=== PATIENT | female | born 1945 | race African-American/Black ===

== ENCOUNTER 2017-04-17 12:03 | Inpatient (IN) | payer OTHER ==
[2017-04-17 12:12] VITALS: BMI 35.6
--- NOTE | 2017-04-17 12:38 | PDOC ---
History of Present Illness - General Chief Complaint: Shortness of Breath Stated Complaint: PCP SENT Time Seen by Provider: 04/17/17 12:38 - History of Present Illness Initial Comments: 04/17/17 13:13 Ms. Doshi is a 71 year old female with a significant past medical history of DM, HTN, Hypercholesterolemia who presents to the emergency department with a 6 day history of tightness in her chest with new onset shortness of breath when she attempts to walk. She says she must now walk much more slowly than normal so as to catch her breath as she moves. She was at her pcp this morning and sent here for r/o PE. The patient denies chest pain, shortness of breath, headache and dizziness. Denies fever, chills, nausea, vomit, diarrhea and constipation. Denies dysuria, frequency, urgency and hematuria. Allergies:NKDA Past surgical history: partial hysterectomy Social history: none PMD - Alexander Guido Past History - Past Medical History Allergies/Adverse Reactions: Allergies Allergy/AdvReac Type Severity Reaction Status Date / Time No Known Drug Allergies Allergy Verified 04/17/17 12:11 Home Medications: Ambulatory Orders Aspirin Coated [Ecotrin -] 81 mg PO DAILY 08/07/12 Atorvastatin Calcium 40 mg PO DAILY 08/07/12 Carvedilol 12.5 mg PO DAILY 08/07/12 Losartan/Hydrochlorothiazide [Losartan-Hctz 50-12.5 mg Tab] 1 each PO UTDICT 07/08 Empagliflozin [Jardiance] 10 mg PO DAILY 04/17/17 Ezetimibe [Zetia -] 10 mg PO DAILY 04/17/17 Metformin HCl [Metformin HCl ER] 1,000 mg PO DAILY 04/17/17 Anemia: No Asthma: No Cancer: No Cardiac Disorders: No CVA: No COPD: No CHF: No Dementia: No Diabetes: Yes (BORDERLINE) GI Disorders: No Disorders: No HTN: Yes Hypercholesterolemia: Yes Liver Disease: Yes (NAFLD) Seizures: No Thyroid Disease: Yes ("ENLARGED") - Surgical History Abdominal Surgery: No Appendectomy: No Cardiac Surgery: No Cholecystectomy: No Lung Surgery: No Neurologic Surgery: No Orthopedic Surgery: No - Psycho/Social/Smoking Cessation Hx Suicidal Ideation: No Smoking History: Never smoked Have you smoked in the past 12 months: No Information on smoking cessation initiated: No Hx Alcohol Use: No Drug/Substance Use Hx: No Substance Use Type: None Hx Substance Use Treatment: No Review of Systems - Review of Systems Comments:: 04/17/17 13:13 GENERAL/CONSTITUTIONAL: No fever or chills. No weakness. HEAD, EYES, EARS, NOSE AND THROAT: No change in vision. No ear pain or discharge. No sore throat. CARDIOVASCULAR: +Recent shortness of breath on exertion. RESPIRATORY: +Recent tightness in chest with shortness of breath. No cough, wheezing, or hemoptysis. GASTROINTESTINAL: No nausea, vomiting, diarrhea or constipation. GENITOURINARY: No dysuria, frequency, or change in urination. MUSCULOSKELETAL: No joint or muscle swelling or pain. No neck or back pain. SKIN: No rash NEUROLOGIC: No headache, vertigo, loss of consciousness, or change in strength/ sensation. ENDOCRINE: No increased thirst. No abnormal weight change HEMATOLOGIC/LYMPHATIC: No anemia, easy bleeding, or history of blood clots. ALLERGIC/IMMUNOLOGIC: No hives or skin allergy. *Physical Exam - Vital Signs Last Vital Signs Temp Pulse Resp BP Pulse Ox 98 F 100 H 18 160/86 98 04/17/17 12:06 04/17/17 12:06 04/17/17 12:06 04/17/17 12:06 04/17/17 12:06 - Physical Exam Comments: 04/17/17 13:13 GENERAL: Awake, alert, and fully oriented, in no acute distress HEAD: No signs of trauma, normocephalic, atraumatic EYES: PERRLA, EOMI, sclera anicteric, conjunctiva clear ENT: Auricles normal inspection, hearing grossly normal, nares patent, oropharynx clear without exudates. Moist mucosa NECK: Normal ROM, supple, no lymphadenopathy, JVD, or masses LUNGS: +Bilateral wheezes noted at lung bases. No distress while seated, speaks full sentences HEART: Regular rate and rhythm, normal S1 and S2, no murmurs, rubs or gallops, peripheral pulses normal and equal bilaterally. ABDOMEN: Soft, nontender, normoactive bowel sounds. No guarding, no rebound. No masses EXTREMITIES: Normal inspection, Normal range of motion, no edema. No clubbing or cyanosis. NEUROLOGICAL: Cranial nerves II through XII grossly intact. Normal speech, normal gait, no focal sensorimotor deficits SKIN: Warm, Dry, normal turgor, no rashes or lesions noted. ED Treatment Course - LABORATORY CBC & Chemistry Diagram: 04/17/17 13:07 04/17/17 13:07 Medical Decision Making - Medical Decision Making 04/17/17 19:12 Ms. Doshi presents for evaluation after a 6 day history of shortness of breath with walking as well as tightness of her chest. She presents on advice of PCP Alexander Guido for R/O PE. D-Dimer 777, CTA showed bilateral pulmonary effusions as well as pancreatic mass. PCP made aware and Drs. Shearer and Yaima consulted for Pulm and GI f/u. Hay will admit for further care. *DC/Admit/Observation/Transfer Diagnosis at time of Disposition: Pleural effusion, Pancreatic mass - Discharge Dispostion Admit: Yes - Referrals Referrals: Alexander Guido MD [Primary Care Provider] - - Attestations Physician Attestion: 04/17/17 13:13 I, Dr. Clive Ortiz, attest that this document has been prepared under my direction and personally reviewed by me in its entirety. I further attest, that it accurately reflects all work, treatment, procedures and medical decision -making performed by me.
[2017-04-17] MEDS ORDERED: ALBUTEROL SO4 2.5/IPRATROPIUM 0.5 INH SOL 3 ML VIAL.NEB. NEB ONE ×2 (12:53→13:09)
[2017-04-17 13:45] LABS: BASOPHIL 0.8 % (0-2.0); EOSINOPHIL 1.6 % (0-4.5); MCH 21.9 pg (25.7-33.7); MCHC 30.7 g/dl (32.0-36.0); MEAN CELL VOLUME 71.3 fl (80-96); MEAN PLT VOLUME 10.2 fl (7.5-11.1); NEUTROPHILS 64.3 % (42.8-82.8); PLATELET COUNT 244 K/MM3 (134-434); RDW 18.2 % (11.6-15.6); WHITE BLOOD COUNT 9.9 K/mm3 (4.0-10.0)
--- NOTE | 2017-04-17 13:56 | PDOC ---
Attending Attestation - Resident Resident Name: Clive Ortiz - ED Attending Attestation I have performed the following: I have examined & evaluated the patient, The case was reviewed & discussed with the resident, I agree w/resident's findings & plan, Exceptions are as noted - HPI HPI: 04/17/17 13:45 71 F with h/o DM, HTN, HLD presenting to ER with 1 week of HERNANDEZ. Pt states that she feels like her chest is tight. The tightness is worse with deep inspiration. Denies F/C. Denies cough. Denies leg swelling, denies recent travel /immobilization. No h/o asthma/COPD, never smoked. - Physicial Exam PE: 04/17/17 13:56 "GENERAL: Awake, alert, and fully oriented, in no acute distress HEAD: No signs of trauma EYES: PERRLA, EOMI, sclera anicteric, conjunctiva clear ENT: Auricles normal inspection, hearing grossly normal, nares patent, oropharynx clear without exudates. Moist mucosa NECK: Normal ROM, supple, no lymphadenopathy, JVD, or masses LUNGS: diminished BS at R base, mild diffuse rales, no wheezing, no rhonchi HEART: Regular rate and rhythm, normal S1 and S2, no murmurs, rubs or gallops ABDOMEN: Soft, nontender, normoactive bowel sounds. No guarding, no rebound. No masses EXTREMITIES: Normal range of motion, no edema. No clubbing or cyanosis. No cords, erythema, or tenderness NEUROLOGICAL: Cranial nerves II through XII grossly intact. Normal speech, normal gait SKIN: Warm, Dry, normal turgor, no rashes or lesions noted. " - Medical Decision Making 04/17/17 13:57 71 F with DM, HTN, HLD presenting with 1 week of HERNANDEZ and chest tightness. Exam with diminished lung sounds at R lung base and crackles. Possible new onset CHF. Also consider pleural effusion. Will also r/o PE given tachycardia and pleuritic chest tightness. ACS is possibility given TW inversions on EKG, though presentation is atypical. - Labs, trop, BNP, ddimer - CXR - Admit 04/17/17 17:25 Ddimer positive Pt pending CTA chest to r/o PE. HEART score 4, to be admitted for ACS r/o if CT negative. Heart Score/ECG Review - History History: Slightly suspicious - Electrocardiogram EKG: Normal - Age Age: >/= 65 - Risk Factors Risk Factors Heart Score: Yes Hx Hypercholesterolemia, Yes Hx Hypertension, Yes Hx Diabetes Based on the list above the patient has:: >/=3 risk factors or Hx atherosclerotic disease - Troponin Troponin: </= normal limit - Score Heart Score - Total: 4 - ECG Impressions Comment:: 04/17/17 13:57 Sinus tachycardia. No ALTHEA/STDs, TWI in anterior leads, intervals wnl, axis wnl
[2017-04-17 14:07] LABS: ALBUMIN 3.7 g/dl (3.4-5.0); ANION GAP 23 (8-16); BILIRUBIN,TOTAL 0.8 mg/dL (0.2-1.0); CO2 14 mmol/L (21-32); CREATININE 0.4 mg/dL (0.55-1.02); GLUCOSE,RANDOM 89 mg/dL (74-106); SGPT/ALT 22 U/L (12-78)
[2017-04-17 14:10] LABS: ALK PHOS 115 U/L (45-117); TOT PROT 7.6 g/dl (6.4-8.2); TROPONIN I < 0.02 ng/ml (0.00-0.05)
[2017-04-17 14:11] LABS: CALCIUM 8.7 mg/dL (8.5-10.1); CPK 120 IU/L (26-192); SGOT/AST 37 U/L (15-37)
--- NOTE | 2017-04-17 18:55 | EKG ---
Test Reason : Blood Pressure : / mmHG Vent. Rate : 100 BPM Atrial Rate : 100 BPM P-R Int : 170 ms QRS Dur : 078 ms QT Int : 370 ms P-R-T Axes : 070 -25 -13 degrees QTc Int : 477 ms NORMAL SINUS RHYTHM NONSPECIFIC ST AND T WAVE ABNORMALITY PROLONGED QT ABNORMAL ECG WHEN COMPARED WITH ECG OF 07-MAR-2008 08:10, VENT. RATE HAS INCREASED BY [address]-T WAVE ABNORMALITY IN ANTERIOR LEADS Confirmed by MARGIE PADILLA MD ([id number]) on 04/17/2017 6:54:55 PM Referred By: Confirmed By:MARGIE PADILLA MD
[2017-04-17] MEDS ORDERED: LOSARTAN POTASSIUM 25 MG TABLET ONE (20:28)
[2017-04-17] MEDS ORDERED: HYDROCHLOROTHIAZIDE 25 MG TABLET (FP) ONE (20:28)
[2017-04-17] MEDS: LOSARTAN 50MG/HCTZ 12.5MG 1 TAB (FP) PO SCH (21:08)
[2017-04-17] MEDS ORDERED: CARVEDILOL 3.125 MG TABLET (FP) ONE (22:41)
[2017-04-17] MEDS: CARVEDILOL 6.25 MG TABLET (FP) PO SCH (22:47)
[2017-04-18] MEDS ORDERED: PT OWN MED DRAWER 7, Y5N ONE ×2 (01:46→09:25)
[2017-04-18] MEDS ORDERED: AMPICILLIN NA/SULBACTAM NA 100 ML IVPB SCH (02:00)
[2017-04-18] MEDS ORDERED: AMPICILLIN NA/SULBACTAM NA 1.5 GM VIAL ONE ×3 (02:05→17:05)
[2017-04-18] MEDS ORDERED: SODIUM CHLORIDE 100 ML IVPB ONE ×3 (02:05→17:05)
[2017-04-18] MEDS: AMPICILLIN NA/SULBACTAM NA 1.5 GM in SODIUM CHLORIDE 100 ML IVPB SCH ×3 (02:26→17:09)
[2017-04-18] MEDS: CARVEDILOL 6.25 MG TABLET (FP) PO SCH (09:34)
[2017-04-18 10:21] LABS: INR 1.13 (0.82-1.09); PROTHROMBIN TIME (PATIENT) 12.5 SEC (9.98-11.88)
--- NOTE | 2017-04-18 10:30 | CON.GI ---
Consult Consult Specialty:: GI - For Dr. Erwin Referred by:: Dr. Alexander Guido Reason for Consultation:: Pancreatic Mass - History of Present Illness Chief Complaint: Shortness of breath History of Present Illness: 71F admitted to [facility] after having been sent by her PMD to ER for evaluation of increasing SOB/HERNANDEZ. Work-up included a CTA of the chest revealing a moderate to large right pleural effusion, small left pleural effusion, bilateral lung nodules and a 4cm pancreatic mass. She describes a decrease in appetite over the past 3 months but denies weight loss. She also says that more recently her diabetes has been harder to control. she denies abdominal pain, nausea, vomiting, dysphagia, odynophagia, change in bowel habits, rectal bleeding / melena. She is followed by care rep Dr. Sharri Erwin who last saw Ms. Doshi in office 09/17/15. His note at that fawn alludes to her undergoing EGD 08/02 that revealed streaks of antral gastritis with a small hiatal hernia and a patent schatzki's ring. her last colonoscopy also appeared to be 09/20/13 that revealed mild diverticulosis in the sigmoid colon. hyperplastic polyps were removed. - History Source History Provided By: Patient, Medical Record Limitations to Obtaining History: No Limitations - Past Medical History Cardio/Vascular: Yes: HTN, Hyperlipdemia Gastrointestinal: Yes: Diverticulosis, GERD, Other (colon polyps, gallstones vs. 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 Place of : [facility] History of Recent Travel: No Home Medications - Allergies Allergies/Adverse Reactions: Allergies Allergy/AdvReac Type Severity Reaction Status Date / Time No Known Drug Allergies Allergy Verified 04/17/17 12:11 - Home Medications Home Medications: Ambulatory Orders Aspirin Coated [Ecotrin -] 81 mg PO DAILY 08/07/12 Atorvastatin Calcium 40 mg PO DAILY 12/18/12 Carvedilol 12.5 mg PO DAILY 08/07/12 Losartan/Hydrochlorothiazide [Losartan-Hctz 50-12.5 mg Tab] 1 each PO UTDICT 07/08 Empagliflozin [Jardiance] 10 mg PO DAILY 04/17/17 Ezetimibe [Zetia -] 10 mg PO DAILY 04/17/17 Metformin HCl [Metformin HCl ER] 1,000 mg PO DAILY 04/17/17 Family Disease History - Family Disease History Family Disease History: Other: Father (: [place]) Other Family History: Sibling with lymphoma, sibling with HIV Review of Systems - Review of Systems Constitutional: denies: Chills, Unintentional Wgt. Loss Cardiovascular: reports: Shortness of Breath. denies: Chest Pain Respiratory: reports: SOB on Exertion. denies: Cough, Hemoptysis, Wheezing Gastrointestinal: reports: Other (diminished appetite over the past 3 months). denies: Abdominal Pain, Bloating, Constipation, Diarrhea, Dysphagia, Melena, Nausea, Rectal Bleeding, Vomiting, Vomiting Blood Genitourinary: denies: Discharge Physical Exam-GI Vital Signs: Vital Signs Temperature 98.3 F 04/18/17 09:21 Pulse Rate 95 H 04/18/17 09:21 Respiratory Rate 18 04/18/17 09:21 Blood Pressure 155/78 04/18/17 09:21 O2 Sat by Pulse Oximetry (%) 96 04/18/17 02:00 Constitutional: Yes: Calm Eyes: No: Sclera Icterus Cardiovascular: Yes: Regular Rate and Rhythm. No: Murmur Respiratory: Yes: Diminished (at right base), Rhonchi (fine rhonchi bases b/l R> L) Gastrointestinal Inspection: No: Distention, Scars ...Auscultate: Yes: Normoactive Bowel Sounds ...Palpate: No: Hepatomegaly, Splenomegaly, Tenderness ...Percussion: No: Tympanitic Edema: No (No LE edema) Neurological: Yes: Alert, Oriented Imaging - Results Cat Scan: Report Reviewed, Image Reviewed Problem List - Problems (1) Pancreatic mass Assessment/Plan: Will need further evaluation when acute issues are resolved. Likely EUS. She shows interest in being evaluate at [facility] as she lives in the [place] scan of the abdomen / pelvis with and without contrast is pending: I adjusted it to specify pancreatic protocol CA 19-9 Pending Consider heme/onc evaluation Code(s): K86.9 - DISEASE OF PANCREAS, UNSPECIFIED
[2017-04-18] MEDS: LOSARTAN 50MG/HCTZ 12.5MG 1 TAB (FP) PO SCH (11:23)
--- NOTE | 2017-04-18 12:02 | HP ---
Admitting History and Physical - Admission Chief Complaint: 71 Y.O FPRESENTED TO THE OFFICE YESTERDAY WITH HERNANDEZ, WEAKNESS AND COUGH WITH TRACE WHEEZING. SHE WAS SENT TO [facility] ER WITH SUSPICION OF PE. IN THE ER ELEVATED D-DIMERS. CTA R>L PLEURAL EFFUSION, ATELECTATIC LUNG BASES, 4 CM HYPOECHOIC PANCREATIC MASS. 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 polyps) Hepatobiliary: Yes: Other (NAFLD) Renal/: No: Renal Failure, Renal Inusuff, BPH, Cancer, Hematuria, Hemodialysis , Neurogenic Bladder, Renal Calculi, UTI, Other Reproductive: Yes: Postmenopausal ...: No Heme/Onc: No: Anemia, B12 Deficiency, Bleeding Disorder, Cancer, Current Chemotherapy, Current Radiation Therapy, Hemochromatosis, Hypercoaguable State, Myeloproliferative Synd, Sickle Cell Disease, Sickle Cell Trait, Thrombocytopenia, Other Infectious Disease: No: AIDS, C-Diff, Herpes Zoster, HIV, MRSA, STD's, Tuberculosis, VREF, Other - Past Surgical History Past Surgical History: Yes: Hysterectomy (partial with intact ovaries), Tonsillectomy, Tubal Ligation - Smoking History Smoking history: Never smoked Have you smoked in the past 12 months: No - Alcohol/Substance Use Hx Alcohol Use: No History of Substance Use: reports: None - Social History ADL: Independent 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 History of Recent Travel: No Home Medications - Allergies Allergies/Adverse Reactions: Allergies Allergy/AdvReac Type Severity Reaction Status Date / Time No Known Drug Allergies Allergy Verified 04/17/17 12:11 - Home Medications Home Medications: Ambulatory Orders Aspirin Coated [Ecotrin -] 81 mg PO DAILY 08/07/12 Atorvastatin Calcium 40 mg PO DAILY 08/07/12 Carvedilol 12.5 mg PO DAILY 08/07/12 Losartan/Hydrochlorothiazide [Losartan-Hctz 50-12.5 mg Tab] 1 each PO UTDICT 07/08 Empagliflozin [Jardiance] 10 mg PO DAILY 04/17/17 Ezetimibe [Zetia -] 10 mg PO DAILY 04/17/17 Metformin HCl [Metformin HCl ER] 1,000 mg PO DAILY 04/17/17 Family Disease History - Family Disease History Family Disease History: Other: Father (: [place]) Other Family History: Sibling with lymphoma, sibling with HIV Review of Systems - Review of Systems Constitutional: reports: Loss of Appetite, Unintentional Wgt. Loss, Weakness Eyes: denies: Blind Spots, Recent Change in Vision HENT: denies: Difficult Swallowing, Hearing Loss, Nasal Congestion Neck: denies: Decreased ROM, Lumps, Pain on Movement, Stiffness, Swollen Glands , Tenderness Cardiovascular: reports: Shortness of Breath. denies: Chest Pain, Edema, Palpitations Gastrointestinal: reports: Bloating, Indigestion. denies: Melena, Nausea, Rectal Bleeding, Vomiting, Vomiting Blood Genitourinary: reports: No Symptoms Breasts: reports: No Symptoms Reported Musculoskeletal: reports: No Symptoms Integumentary: reports: No Symptoms Neurological: reports: No Symptoms Endocrine: reports: No Symptoms Hematology/Lymphatic: denies: Easily Bruised, Excessive Bleeding, Swollen Glands Psychiatric: reports: Anxiety Physical Examination Vital Signs: Vital Signs Temperature 98.3 F 04/18/17 09:21 Pulse Rate 95 H 04/18/17 09:21 Respiratory Rate 18 04/18/17 09:21 Blood Pressure 155/78 04/18/17 09:21 O2 Sat by Pulse Oximetry (%) 96 04/18/17 02:00 Constitutional: Yes: Anxious, Mild Distress Eyes: Yes: Conjunctiva Clear, EOM Intact HENT: Yes: Atraumatic, Normocephalic. No: Drooling, Epistaxis Neck: Yes: Supple, Trachea Midline. No: Decreased ROM, Lymphadenopathy Cardiovascular: Yes: Regular Rate and Rhythm. No: Bradycardia, Tachycardia Respiratory: Yes: Regular, Diminished (rRLL) Gastrointestinal: Yes: Normal Bowel Sounds, Soft ...Rectal Exam: Yes: Deferred Renal/: No: Anuria, Bladder Distention Breast(s): Yes: WNL Musculoskeletal: No: Joint Stiffness Extremities: No: Amputation, Calf Tenderness, Cold, Cool, Cyanosis Edema: No Peripheral Pulses WNL: Yes Integumentary: Yes: WNL Neurological: Yes: Alert, Oriented. No: Aphasia, Asterixis, Ataxia, Confusion, Dysarthria, Lethargy ...Motor Strength: WNL Psychiatric: Yes: WNL Labs: Laboratory Results - last 24 hr 04/17/17 04/17/17 04/17/17 13:07 13:07 13:07 WBC 9.9 RBC 5.41 H Hgb 11.9 Hct 38.6 MCV 71.3 L MCH 21.9 L MCHC 30.7 L RDW 18.2 H Plt Count 244 MPV 10.2 Neutrophils % 64.3 Lymphocytes % 25.8 Monocytes % 7.5 Eosinophils % 1.6 Basophils % 0.8 INR D-Dimer Cancelled Sodium 137 Potassium 5.1 Chloride 100 Carbon Dioxide 14 L Anion Gap 23 H BUN 9 Creatinine 0.4 L Creat Clearance w eGFR > 60 POC Glucometer Random Glucose 89 Calcium 8.7 Total Bilirubin 0.8 AST 37 ALT 22 Alkaline Phosphatase 115 Creatine Kinase 120 Troponin I < 0.02 B-Natriuretic Peptide Total Protein 7.6 Albumin 3.7 04/17/17 04/17/17 04/18/17 13:07 14:35 06:43 WBC RBC Hgb Hct MCV MCH MCHC RDW Plt Count MPV Neutrophils % Lymphocytes % Monocytes % Eosinophils % Basophils % INR D-Dimer 777 H Sodium Potassium Chloride Carbon Dioxide Anion Gap BUN Creatinine Creat Clearance w eGFR POC Glucometer 96 Random Glucose Calcium Total Bilirubin AST ALT Alkaline Phosphatase Creatine Kinase Troponin I B-Natriuretic Peptide 74.75 Total Protein Albumin 04/18/17 09:35 WBC RBC Hgb Hct MCV MCH MCHC RDW Plt Count MPV Neutrophils % Lymphocytes % Monocytes % Eosinophils % Basophils % INR 1.13 D-Dimer Sodium Potassium Chloride Carbon Dioxide Anion Gap BUN Creatinine Creat Clearance w eGFR POC Glucometer Random Glucose Calcium Total Bilirubin AST ALT Alkaline Phosphatase Creatine Kinase Troponin I B-Natriuretic Peptide Total Protein Albumin Imaging - Results Chest X-ray: Report Reviewed Cat Scan: Report Reviewed EKG: Image Reviewed Problem List - Problems (1) Pancreatic mass Assessment/Plan: GI consult appreciated Will discuss EUS CT abdomen, pelvis Code(s): K86.9 - DISEASE OF PANCREAS, UNSPECIFIED (2) Pleural effusion Assessment/Plan: Thoracentesis-P Cytology, Cx, _to bedone. Code(s): J90 - PLEURAL EFFUSION, NOT ELSEWHERE CLASSIFIED (3) Pericardial effusion Assessment/Plan: Small effusion. Will get ECHo ro look at effusion. Normal BNP. Code(s): I31.3 - PERICARDIAL EFFUSION (NONINFLAMMATORY)
[2017-04-18 14:06] LABS: PLEURAL FLUID APPEARANCE HAZY; PLEURAL FLUID COLOR YELLOW; PLEURAL FLUID SOURCE RIGHT PLURAL
[2017-04-18 14:49] LABS: GLUCOSE,PLEURAL FLUID 99.318; TOTAL PROTEIN,PLEURAL FLUID 5.354
[2017-04-18 14:51] LABS: CHLORIDE PLEURAL FLUID 105
--- NOTE | 2017-04-18 16:00 | CON.PULM ---
Consult Consult Specialty:: PULMONARY Referred by:: AIMEE Reason for Consultation:: PLEURAL EFFUSION - History of Present Illness Chief Complaint: WEIGHT LOSS. 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 polyps) Hepatobiliary: Yes: Other (NAFLD) Renal/: No: Renal Failure, Renal Inusuff, BPH, Cancer, Hematuria, Hemodialysis , Neurogenic Bladder, Renal Calculi, UTI, Other ...: No Infectious Disease: No: AIDS, C-Diff, Herpes Zoster, HIV, MRSA, STD's, Tuberculosis, VREF, Other - Past Surgical History Past Surgical History: Yes: Hysterectomy (partial with intact ovaries), Tonsillectomy, Tubal Ligation Additional Surgical History: removal of lipoma right shoulder - Alcohol/Substance Use Hx Alcohol Use: No History of Substance Use: reports: None - Smoking History Smoking history: Never smoked Have you smoked in the past 12 months: No - Social History Usual Living Arrangement: With Spouse ADL: Independent 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 History of Recent Travel: No Home Medications - Allergies Allergies/Adverse Reactions: Allergies Allergy/AdvReac Type Severity Reaction Status Date / Time No Known Drug Allergies Allergy Verified 04/17/17 12:11 - Home Medications Home Medications: Ambulatory Orders Aspirin Coated [Ecotrin -] 81 mg PO DAILY 08/07/12 Atorvastatin Calcium 40 mg PO DAILY 08/07/12 Carvedilol 12.5 mg PO DAILY 08/07/12 Losartan/Hydrochlorothiazide [Losartan-Hctz 50-12.5 mg Tab] 1 each PO UTDICT 07/08 Empagliflozin [Jardiance] 10 mg PO DAILY 04/17/17 Ezetimibe [Zetia -] 10 mg PO DAILY 04/17/17 Metformin HCl [Metformin HCl ER] 1,000 mg PO DAILY 04/17/17 Family Disease History - Family Disease History Family History: Unremarkable Family Disease History: Other: Father (: [place]) Other Family History: Sibling with lymphoma, sibling with HIV Review of Systems - Review of Systems Constitutional: denies: Fever Eyes: denies: Blurred Vision HENT: denies: Difficult Swallowing Neck: denies: Decreased ROM Cardiovascular: denies: Chest Pain Respiratory: denies: Cough, SOB on Exertion Gastrointestinal: denies: Abdominal Pain Genitourinary: denies: Burning Breasts: reports: No Symptoms Reported Musculoskeletal: reports: No Symptoms Integumentary: reports: No Symptoms Neurological: reports: No Symptoms Endocrine: reports: No Symptoms Hematology/Lymphatic: reports: No Symptoms Physical Exam Vital Sings: Vital Signs Temperature 98.3 F 04/18/17 09:21 Pulse Rate 95 H 04/18/17 09:21 Respiratory Rate 18 04/18/17 09:21 Blood Pressure 155/78 04/18/17 09:21 O2 Sat by Pulse Oximetry (%) 97 04/18/17 09:00 Constitutional: Yes: Calm Eyes: Yes: EOM Intact HENT: Yes: Normocephalic Neck: Yes: Trachea Midline Cardiovascular: Yes: Regular Rate and Rhythm Respiratory: Yes: CTA Bilaterally Gastrointestinal: Yes: Normal Bowel Sounds, Abdomen, Obese Edema: No Neurological: Yes: Alert Labs: REVIEWED ALL Imaging - Results Chest X-ray: Image Reviewed Ultrasound: Report Reviewed Problem List - Problems (1) Pancreatic mass Code(s): K86.9 - DISEASE OF PANCREAS, UNSPECIFIED (2) Pleural effusion Code(s): J90 - PLEURAL EFFUSION, NOT ELSEWHERE CLASSIFIED Assessment/Plan S/P THORACENTESIS EXUDATIVE CHARACTERISTICS PANCREATIC MASS WEIGHT LOSS CHECK CYTOLOGY ON FLUID MRI PANCREAS SPOKE WITH RADIOLOGY REGARDING US WILL FOLLOW Shauna CUEVA MD
--- NOTE | 2017-04-18 16:04 | PN ---
Progress Note (short form) - Note Progress Note: Spoke w/ Dr. Guido re: plan for further evaluation of pancreatic mass by Dr. Iker Lala, biliary endoscopist @ [facility]. Inpatient transfer was discussed and I spoke with Dr. Lala who accepted Ms. Doshi for transfer. I explained this to Ms. Doshi as well who was in agreement with transfer. Awaiting MRI of abdomen Problem List - Problems (1) Pancreatic mass Code(s): K86.9 - DISEASE OF PANCREAS, UNSPECIFIED
[2017-04-18 18:09] LABS: PLEURAL FLUID LYMPHOCYTES 90 %; PLEURAL FLUID MACROPHAGES 9 %
[2017-04-18 19:46] VITALS: BP 126/61; PULSE 98; TEMP 98.8
[2017-04-18] MEDS ORDERED: CARVEDILOL 12.5 MG TABLET (FP) PO SCH (22:00)
[2017-04-18] MEDS ORDERED: ATORVASTATIN CA 40 MG TABLET (FP) PO SCH (22:00)
--- NOTE | 2017-04-19 07:49 | DS ---
Physical Examination Vital Signs: Vital Signs Temperature 98.8 F 04/18/17 19:41 Pulse Rate 98 H 04/18/17 19:41 Respiratory Rate 18 04/18/17 19:41 Blood Pressure 126/61 04/18/17 19:41 O2 Sat by Pulse Oximetry (%) 97 04/18/17 09:00 Constitutional: Yes: Anxious, Mild Distress Eyes: Yes: Conjunctiva Clear, EOM Intact HENT: Yes: Atraumatic, Normocephalic Neck: Yes: Supple, Trachea Midline Cardiovascular: Yes: Regular Rate and Rhythm Respiratory: Yes: Diminished Gastrointestinal: Yes: Normal Bowel Sounds, Soft, Abdomen, Obese ...Rectal Exam: Yes: Deferred Renal/: No: Anuria Breast(s): Yes: WNL Musculoskeletal: Yes: WNL Extremities: Yes: WNL Edema: No Peripheral Pulses WNL: Yes Integumentary: Yes: WNL Neurological: Yes: WNL ...Motor Strength: WNL Psychiatric: Yes: WNL Discharge Summary Reason For Visit: PLUERAL EFFUSION, PANCREATIC MASS - Instructions Referrals: Alexander Guido MD [Primary Care Provider] - Disposition: TRANSFER ACUTE CARE/OTHER HOSP - Home Medications Comprehensive Discharge Medication List: Ambulatory Orders Aspirin Coated [Ecotrin -] 81 mg PO DAILY 08/07/12 Atorvastatin Calcium 40 mg PO DAILY 08/07/12 Carvedilol 12.5 mg PO DAILY 08/07/12 Losartan/Hydrochlorothiazide [Losartan-Hctz 50-12.5 mg Tab] 1 each PO UTDICT 07/08 Empagliflozin [Jardiance] 10 mg PO DAILY 04/17/17 Ezetimibe [Zetia -] 10 mg PO DAILY 04/17/17 Metformin HCl [Metformin HCl ER] 1,000 mg PO DAILY 04/17/17
--- NOTE | 2017-04-21 16:32 | PATH ---
Cytology Non-Gynecological Report Patient Name: BJ SIMENTAL [facility] Rec. #: [id number] /Age/Gender: 1945 (Age: 71) / F Account: [id number] Location: [address] [place] [address] Taken: 04/18/2017 Received: 04/19/2017 Reported: 04/21/2017 Physicians: Terrance Perrin M.D. Specimen(s) Received A: RIGHT PLEURAL FLUID IN 50% ALCOHOL B: RIGHT PLEURAL FLUID FRESH Clinical History Right pleural effusion, pancreatic mass, pulmonary nodules Final Diagnosis A,B. PLEURAL FLUID, RIGHT, THORACENTESIS: SATISFACTORY FOR EVALUATION. POSITIVE FOR MALIGNANT CELLS. INVOLVEMENT BY ADENOCARCINOMA (SEE COMMENT). Comment: History of pancreatic mass and lung nodules is noted. Immunohistochemical stains performed and interpreted at [facility] on cell block A show the tumor cells are positive for BerEP4/SIMON and CK7 immunostains and are negative for TTF1 and CK20 immunostains. These results are non-specific; additional immunohistochemical stains with an attempt to determine the origin of adenocarcinoma are pending; results will be reported in an addendum. The case was preliminary discussed with Dr. Guido on 04/21/17. Electronically Signed Tico Tovar M.D. Addendum Reported: 04/25/2017 Addendum Diagnosis Additional immunostain immunostains performed at [place], [place] ([id number]) on cell block A and interpreted at [facility] show the following: The tumor cells in the fusion focally positive for CDH17 and CDX2 immunostains and are focally weakly positive for Ca19.9 immunostain. While not specific, these results may be seen in adenocarcinomas of pancreaticobiliary/upper GI origin. Clinical and imaging correlations are suggested. Tico Tovar M.D. Addendum Reported: 04/25/2017 Addendum Diagnosis Additional immunohistochemical stains for PAX8 and Napsin A are negative. Tico Tovar M.D. Gross Description A. Received is a 50 cc of yellow fluid in 50% alcohol. One cytofunnel slide and one cell block are made. B. Received is 1500 cc of yellow fluid fresh. One cytofunnel slide and one cell block are made.
== END 2017-04-18 20:06 | disposition short-term general hospital (02) | DRG 187 ==
LOC: JER 12:03 → JERBED 19:09 → J5S 23:44
PROVIDERS: ADMIT Internal Medicine; ATTEND Internal Medicine
PROC: 0W993ZX Drainage of Right Pleural Cavity, Percutaneous Approach, Diagnostic (ICD-10-PCS; principal; 2017-04-18)
DX: J90 Pleural effusion, not elsewhere classified (principal); I31.3 Pericardial effusion (noninflammatory); I10 Essential (primary) hypertension; R73.03 Prediabetes; K86.89 Other specified diseases of pancreas; R00.0 Tachycardia, unspecified; R91.8 Other nonspecific abnormal finding of lung field; E78.5 Hyperlipidemia, unspecified; K21.9 Gastro-esophageal reflux disease without esophagitis; K57.90 Diverticulosis of intestine, part unspecified, without perforation or abscess without bleeding; K63.5 Polyp of colon; K76.0 Fatty (change of) liver, not elsewhere classified; E66.8 Other obesity; Z68.35 Body mass index [BMI] 35.0-35.9, adult; N95.8 Other specified menopausal and perimenopausal disorders
CPT/HCPCS: 36415; 71010-TC; 71020-TC; 71275-TC; 74182-TC; 76705-TC; 76942; 80053; 82042; 82150; 82378; 82438; 82945; 83615; 83880; 84157; 84311; 84478; 84484; 85025; 85379; 85610; 86301; 87070; 87075; 87102; 87116; 87205; 87206; 87210; 87899; 88108; 88305-TC; 88341-TC; 89051; 93005; 93010; 93306-TC; 99285-25; A9576